=== PATIENT | female | born 1975 | race African-American/Black ===

== ENCOUNTER 2016-12-31 14:39 | Emergency (ER) | payer OTHER ==
[~2016-12-31] VITALS: Ht 165.1 cm; Wt 90.2 kg
[~2016-12-31 14:39] MED LIST: FLEXERIL10 MG PO; JUNEL FE 1.5-31 EACH PO; MOTRIN600 MG PO; ROBAXIN500 MG PO; ULTRAM50 MG PO
[2016-12-31] MEDS ORDERED: NORCO 5/3251 TABLET PO (17:42)
[2016-12-31] MEDS ORDERED: MOTRIN800 MG PO (17:42)
[2016-12-31 18:11] VITALS: BP 133/98
== END 2016-12-31 18:14 | disposition home or self-care (01) ==
LOC: EME 14:39
DX: S83.91XA Sprain of unspecified site of right knee, initial encounter (principal); W20.8XXA Other cause of strike by thrown, projected or falling object, initial encounter; Y92.512 Supermarket, store or market as the place of occurrence of the external cause
CPT/HCPCS: 73564; 99281; 99283